=== PATIENT | female | born 1990 | race African-American/Black ===

== ENCOUNTER 2018-12-07 22:53 | Emergency (ER) | payer SELFPAY ==
[2015-12-19 01:10] VITALS: BP 123/70
== END 2018-12-08 00:13 | disposition left against medical advice (07) ==
LOC: ER 22:53
DX: R22.0 Localized swelling, mass and lump, head (principal); H92.09 Otalgia, unspecified ear; Z53.21 Procedure and treatment not carried out due to patient leaving prior to being seen by health care provider